=== PATIENT | female | born 1935 | race Caucasian/White ===

== ENCOUNTER 2018-04-30 23:01 | Inpatient (IN) | payer OTHER ==
[~2018-04-30] VITALS: Ht 154.9 cm; Wt 73.9 kg
[2018-04-30 23:10] VITALS: BP_SYST 138
[2018-04-30] MEDS ORDERED: ATEN50TA PO (23:25)
[2018-04-30] MEDS ORDERED: HYG25 PO (23:26)
[2018-04-30] MEDS ORDERED: GABA600T PO (23:27)
[2018-04-30] MEDS ORDERED: CEL20 PO (23:27)
[2018-04-30] MEDS ORDERED: RAMI10CA32 PO (23:28)
[2018-04-30] MEDS ORDERED: RANI150T8 PO (23:28)
[2018-04-30] MEDS ORDERED: SIMV40TA2 PO (23:28)
[2018-04-30] MEDS ORDERED: TRAM50TA2 PO (23:29)
[2018-05-01 00:42] LABS: BASOPHILS # (AUTO) 0.1 K/uL (0.0-0.2); BASOPHILS % (AUTO) 0.4 % (0.0-2.0); EOSINOPHILS # (AUTO) 0.1 K/uL (0.0-0.4); EOSINOPHILS % (AUTO) 0.8 % (0.0-4.0); HEMATOCRIT 28.7 % (36-48); HEMOGLOBIN 9.8 g/dL (12.0-16.0); LYMPHOCYTES # (AUTO) 1.5 K/uL (1.0-5.5); LYMPHOCYTES % (AUTO) 11.7 % (20.5-51.5); MEAN CORPUSCULAR HEMOGLOBIN 34 pg (27-31); MEAN CORPUSCULAR HGB CONC 34 % (32-36); MEAN CORPUSCULAR VOLUME 99 fL (79.0-98.0); MONOCYTES # (AUTO) 0.7 K/uL (0.0-1.0); MONOCYTES % (AUTO) 5.2 % (1.7-9.3); NEUTROPHILS # (AUTO) 10.4 K/uL (1.8-7.7); NEUTROPHILS % (AUTO) 81.9 % (40.0-70.0); PLATELET COUNT (AUTO) 289 K/uL (130-430); RED BLOOD CELL COUNT(AUTO) 2.92 MIL/uL (4.2-6.2); RED CELL DISTRIBUTION WIDTH 11.7 % (9.0-15.0); WHITE BLOOD COUNT (AUTO) 12.8 K/uL (4.8-10.8)
[2018-05-01 00:56] LABS: ALANINE AMINOTRANSFERASE 15 U/L (12-78); ALBUMIN 2.7 g/dL (3.4-4.8); ANION GAP 11 (5-15); ASPARTATE AMINOTRANSFERASE 28 U/L (10-37); CALCIUM 8.6 mg/dL (8.4-11.0); CHLORIDE 97 mmol/L (98-107); CREATININE 3.11 mg/dL (0.55-1.30); GLUCOSE 115 mg/dL (70-99); SODIUM SERUM 137 mmol/L (136-145); TOTAL BILIRUBIN 0.6 mg/dL (0.0-1.0)
[2018-05-01 01:09] LABS: POTASSIUM 2.9 mmol/L (3.5-5.1)
[2018-05-01 01:16] LABS: UREA NITROGEN, BLOOD 58 mg/dL (8-21)
[2018-05-01 01:17] LABS: PROTHROMBIN TIME 10.2 SECS (9.5-12.5)
[2018-05-01] MEDS ORDERED: POTASSIUM CHLORIDE 20 MEQ/PKT PACKET PO ONE (01:30)
[2018-05-01] MEDS ORDERED: KCL 20 mEq in NS 1000 mL 1,000 ML IV ONE (01:30)
[2018-05-01 02:49] VITALS: BP_SYST 123
[2018-05-01 03:56] LABS: BILIRUBIN,URINE NEGATIVE (NEGATIVE); BLOOD, URINE NEGATIVE (NEGATIVE); CLARITY/URINE CLEAR (CLEAR); COLOR,URINE YELLOW (YELLOW); GLUCOSE,URINE NEGATIVE (NEGATIVE); KETONES,URINE NEGATIVE (NEGATIVE); LEUKOCYTE ESTERASE ,URINE TRACE (NEGATIVE); NITRITE, URINE NEGATIVE (NEGATIVE); PH,URINE 5.5 (5.0-8.0); PROTEIN URINE NEGATIVE (NEGATIVE)
[2018-05-01 04:09] LABS: BACTERIA,URINE FEW /HPF (None Seen); MUCUS,URINE 1+ /LPF (None Seen); RBC,URINE 0-3 /HPF (0-3)
[2018-05-01] MEDS ORDERED: ACETAMINOPHEN 325 MG TABLET PO PRN (06:15)
[2018-05-01] MEDS ORDERED: ALBUTEROL SULFATE 0.083% 2.5 MG/3 ML VIAL.NEB INH PRN (06:15)
[2018-05-01] MEDS ORDERED: HYDROcodone/ACETAMIN 5-325 MG TAB (NORCO/ VICODIN) PO PRN (06:15)
[2018-05-01] MEDS: NACL 0.9% 1,000 ML IV SCH ×2 (08:00→21:04)
[2018-05-01 08:08] VITALS: BP_SYST 114
[2018-05-01] MEDS: traMADol HCL HCL 50 MG TABLET (ULTRAM) PO SCH ×3 (08:34→21:04)
[2018-05-01] MEDS: CITALOPRAM HYDROBROMIDE 20 MG TABLET PO SCH (08:34)
[2018-05-01] MEDS: cefTRIAXone 1 GM in D5W 50 ML IV SCH (08:34)
[2018-05-01 08:35] LABS: BASOPHILS # (AUTO) 0.1 K/uL (0.0-0.2); BASOPHILS % (AUTO) 0.7 % (0.0-2.0); EOSINOPHILS # (AUTO) 0.3 K/uL (0.0-0.4); EOSINOPHILS % (AUTO) 2.4 % (0.0-4.0); HEMATOCRIT 30.6 % (36-48); HEMOGLOBIN 10.2 g/dL (12.0-16.0); LYMPHOCYTES # (AUTO) 1.8 K/uL (1.0-5.5); LYMPHOCYTES % (AUTO) 16.3 % (20.5-51.5); MEAN CORPUSCULAR HEMOGLOBIN 33 pg (27-31); MEAN CORPUSCULAR HGB CONC 33 % (32-36); MEAN CORPUSCULAR VOLUME 98 fL (79.0-98.0); MONOCYTES # (AUTO) 0.7 K/uL (0.0-1.0); MONOCYTES % (AUTO) 6.7 % (1.7-9.3); NEUTROPHILS # (AUTO) 7.9 K/uL (1.8-7.7); NEUTROPHILS % (AUTO) 73.9 % (40.0-70.0); PLATELET COUNT (AUTO) 302 K/uL (130-430); RED BLOOD CELL COUNT(AUTO) 3.13 MIL/uL (4.2-6.2); RED CELL DISTRIBUTION WIDTH 11.4 % (9.0-15.0); WHITE BLOOD COUNT (AUTO) 10.8 K/uL (4.8-10.8)
[2018-05-01] MEDS: SIMVASTATIN 40 MG TABLET PO SCH (08:37)
[2018-05-01] MEDS: GABAPENTIN 300 MG CAPSULE PO SCH ×2 (08:37→21:03)
[2018-05-01 08:46] LABS: ANION GAP 8 (5-15); CALCIUM 8.6 mg/dL (8.4-11.0); CHLORIDE 101 mmol/L (98-107); CREATININE 2.41 mg/dL (0.55-1.30); GLUCOSE 104 mg/dL (70-99); POTASSIUM 3.7 mmol/L (3.5-5.1); SODIUM SERUM 136 mmol/L (136-145); UREA NITROGEN, BLOOD 51 mg/dL (8-21)
[2018-05-01 08:53] LABS: ALANINE AMINOTRANSFERASE 17 U/L (12-78); ALBUMIN 2.6 g/dL (3.4-4.8); ASPARTATE AMINOTRANSFERASE 30 U/L (10-37); TOTAL BILIRUBIN 0.5 mg/dL (0.0-1.0)
[2018-05-01] MEDS: ATENOLOL 50 MG TABLET (TENORMIN) PO SCH (09:00)
[2018-05-01 12:20] VITALS: BP_SYST 102
[2018-05-01 16:35] VITALS: BP_SYST 102
[2018-05-01 17:31] VITALS: BP_SYST 102
[2018-05-01 19:05] VITALS: BP_SYST 120
[2018-05-02 00:17] VITALS: BP_SYST 130
[2018-05-02 06:46] LABS: BASOPHILS % (AUTO) 0.4 % (0.0-2.0); EOSINOPHILS # (AUTO) 0.4 K/uL (0.0-0.4); EOSINOPHILS % (AUTO) 4.3 % (0.0-4.0); HEMATOCRIT 28.3 % (36-48); HEMOGLOBIN 9.7 g/dL (12.0-16.0); LYMPHOCYTES # (AUTO) 1.8 K/uL (1.0-5.5); LYMPHOCYTES % (AUTO) 17.8 % (20.5-51.5); MEAN CORPUSCULAR HEMOGLOBIN 34 pg (27-31); MEAN CORPUSCULAR HGB CONC 34 % (32-36); MEAN CORPUSCULAR VOLUME 99 fL (79.0-98.0); MONOCYTES # (AUTO) 0.8 K/uL (0.0-1.0); MONOCYTES % (AUTO) 7.5 % (1.7-9.3); NEUTROPHILS # (AUTO) 7.2 K/uL (1.8-7.7); PLATELET COUNT (AUTO) 273 K/uL (130-430); RED BLOOD CELL COUNT(AUTO) 2.86 MIL/uL (4.2-6.2); RED CELL DISTRIBUTION WIDTH 11.9 % (9.0-15.0); WHITE BLOOD COUNT (AUTO) 10.2 K/uL (4.8-10.8)
[2018-05-02 06:54] LABS: ALANINE AMINOTRANSFERASE 14 U/L (12-78); ALBUMIN 2.4 g/dL (3.4-4.8); ANION GAP 7 (5-15); ASPARTATE AMINOTRANSFERASE 21 U/L (10-37); CALCIUM 8.3 mg/dL (8.4-11.0); CHLORIDE 102 mmol/L (98-107); CREATININE 1.49 mg/dL (0.55-1.30); GLUCOSE 97 mg/dL (70-99); POTASSIUM 3.5 mmol/L (3.5-5.1); SODIUM SERUM 137 mmol/L (136-145); TOTAL BILIRUBIN 0.3 mg/dL (0.0-1.0); UREA NITROGEN, BLOOD 34 mg/dL (8-21)
[2018-05-02 07:40] VITALS: BP_SYST 140
[2018-05-02] MEDS: SIMVASTATIN 40 MG TABLET PO SCH (08:07)
[2018-05-02] MEDS: CITALOPRAM HYDROBROMIDE 20 MG TABLET PO SCH (08:07)
[2018-05-02] MEDS: cefTRIAXone 1 GM in D5W 50 ML IV SCH (08:07)
[2018-05-02] MEDS: traMADol HCL HCL 50 MG TABLET (ULTRAM) PO SCH ×3 (08:08→21:00)
[2018-05-02] MEDS: ATENOLOL 50 MG TABLET (TENORMIN) PO SCH (08:08)
[2018-05-02] MEDS: GABAPENTIN 300 MG CAPSULE PO SCH ×2 (08:09→21:00)
[2018-05-02 11:29] VITALS: BP_SYST 136
[2018-05-02 15:53] VITALS: BP_SYST 148
[2018-05-02 19:25] VITALS: BP_SYST 142
[2018-05-03] VITALS: BP_SYST 125
[2018-05-03 06:22] LABS: BASOPHILS % (AUTO) 0.4 % (0.0-2.0); EOSINOPHILS # (AUTO) 0.5 K/uL (0.0-0.4); EOSINOPHILS % (AUTO) 4.1 % (0.0-4.0); HEMATOCRIT 29.7 % (36-48); HEMOGLOBIN 10.3 g/dL (12.0-16.0); LYMPHOCYTES # (AUTO) 2.3 K/uL (1.0-5.5); LYMPHOCYTES % (AUTO) 20.4 % (20.5-51.5); MEAN CORPUSCULAR HEMOGLOBIN 34 pg (27-31); MEAN CORPUSCULAR HGB CONC 35 % (32-36); MEAN CORPUSCULAR VOLUME 99 fL (79.0-98.0); MONOCYTES # (AUTO) 0.9 K/uL (0.0-1.0); MONOCYTES % (AUTO) 8.1 % (1.7-9.3); NEUTROPHILS # (AUTO) 7.8 K/uL (1.8-7.7); PLATELET COUNT (AUTO) 327 K/uL (130-430); RED BLOOD CELL COUNT(AUTO) 3.01 MIL/uL (4.2-6.2); WHITE BLOOD COUNT (AUTO) 11.4 K/uL (4.8-10.8)
[2018-05-03 06:38] LABS: ALANINE AMINOTRANSFERASE 13 U/L (12-78); ALBUMIN 2.6 g/dL (3.4-4.8); ANION GAP 3 (5-15); ASPARTATE AMINOTRANSFERASE 17 U/L (10-37); CALCIUM 8.8 mg/dL (8.4-11.0); CHLORIDE 101 mmol/L (98-107); CREATININE 1.25 mg/dL (0.55-1.30); GLUCOSE 102 mg/dL (70-99); POTASSIUM 3.5 mmol/L (3.5-5.1); SODIUM SERUM 136 mmol/L (136-145); TOTAL BILIRUBIN 0.4 mg/dL (0.0-1.0); UREA NITROGEN, BLOOD 21 mg/dL (8-21)
[2018-05-03 07:35] VITALS: BP_SYST 143
[2018-05-03] MEDS: cefTRIAXone 1 GM in D5W 50 ML IV SCH (07:57)
[2018-05-03] MEDS: GABAPENTIN 300 MG CAPSULE PO SCH (07:57)
[2018-05-03] MEDS: CITALOPRAM HYDROBROMIDE 20 MG TABLET PO SCH (07:58)
[2018-05-03] MEDS: traMADol HCL HCL 50 MG TABLET (ULTRAM) PO SCH ×2 (07:59→16:27)
[2018-05-03] MEDS: ATENOLOL 50 MG TABLET (TENORMIN) PO SCH (08:00)
[2018-05-03] MEDS: SIMVASTATIN 40 MG TABLET PO SCH (08:00)
[2018-05-03 11:04] VITALS: BP_SYST 140
[2018-05-03] MEDS ORDERED: ROCPM1 IV (12:53)
[2018-05-03 16:20] VITALS: BP_SYST 152
[2018-05-03 17:31] VITALS: BP_SYST 138
== END 2018-05-03 18:02 | DRG 682 ==
LOC: SED 23:01 → STU 05-01 01:55 → SMU 05-03 13:00
PROVIDERS: ADMIT Internal Medicine; ATTEND Internal Medicine
DX: N17.9 Acute kidney failure, unspecified (principal); G93.41 Metabolic encephalopathy; N39.0 Urinary tract infection, site not specified; I12.9 Hypertensive chronic kidney disease with stage 1 through stage 4 chronic kidney disease, or unspecified chronic kidney disease; N18.9 Chronic kidney disease, unspecified; E86.0 Dehydration; E78.5 Hyperlipidemia, unspecified; D64.9 Anemia, unspecified; G89.29 Other chronic pain; F03.90 Unspecified dementia, unspecified severity, without behavioral disturbance, psychotic disturbance, mood disturbance, and anxiety; E87.6 Hypokalemia; F32.9 Major depressive disorder, single episode, unspecified; G62.9 Polyneuropathy, unspecified; M19.90 Unspecified osteoarthritis, unspecified site; Z79.899 Other long term (current) drug therapy
CPT/HCPCS: 36415; 71045; 76770; 80053; 81000-TC; 83880; 84484; 85025; 85610-TC; 85730-TC; 87086; 92610-GN; 93005; 97110-GP; 97116-GP; 97530-GP; 99285; J0696; J3480; J7030; J7060

== ENCOUNTER 2019-03-16 21:37 | Emergency (ER) | payer OTHER ==
[~2019-03-16] VITALS: Ht 157.5 cm; Wt 74.4 kg
[~2019-03-16 21:37] MED LIST: ATEN50TA PO; CEL20 PO; GABA600T PO; RANI150T8 PO; ROCPM1 IV; SIMV40TA2 PO; TRAM50TA2 PO
[2019-03-16 21:40] VITALS: BP_SYST 175
[2019-03-17 00:45] VITALS: BP_SYST 145
== END 2019-03-17 00:45 | disposition home or self-care (01) ==
LOC: SED 21:37
DX: S00.03XA Contusion of scalp, initial encounter (principal); E78.00 Pure hypercholesterolemia, unspecified; I10 Essential (primary) hypertension; Z79.899 Other long term (current) drug therapy; W01.198A Fall on same level from slipping, tripping and stumbling with subsequent striking against other object, initial encounter; Y93.01 Activity, walking, marching and hiking; Y92.89 Other specified places as the place of occurrence of the external cause; Y99.8 Other external cause status
CPT/HCPCS: 70450-TC; 99284